=== PATIENT | female | born 1950 | race Caucasian/White ===

== ENCOUNTER 2016-09-18 09:24 | Inpatient (IN) | payer MEDICARE, OTHER ==
[~2016-09-18] VITALS: Ht 162.6 cm; Wt 93.4 kg
[2016-09-18] MEDS ORDERED: clonazePAM 0.5 MG TABLET PO PRN (10:00)
[2016-09-18] MEDS ORDERED: ACETAMINOPHEN 325 MG TABLET PO PRN (10:00)
[2016-09-18] MEDS ORDERED: MAG HYDROX/AL HYDROX/SIMETH 30 ML UDC PO PRN (10:00)
[2016-09-18] MEDS ORDERED: MAGNESIUM HYDROXIDE 30 ML UDC PO PRN (10:00)
[2016-09-18] MEDS ORDERED: TEMAZEPAM 7.5 MG CAPSULE PO PRN (10:00)
--- NOTE | 2016-09-18 10:00 | NUR ---
RN-CO: NOTIFIED DR QUIROGA OF THE ADMISSION, ADMITTING ORDERS GIVEN NOTED.
[2016-09-18] MEDS ORDERED: DIVA500T54 PO (10:44)
[2016-09-18] MEDS ORDERED: DIVA250T PO (10:44)
[2016-09-18] MEDS ORDERED: OLAN20TA3 PO (10:44)
[2016-09-18] MEDS ORDERED: IBUP-1955 PO (10:44)
[2016-09-18] MEDS ORDERED: FLUO40CA49 PO (10:44)
[2016-09-18] MEDS ORDERED: LEVO50TA8 PO (10:44)
[2016-09-18] MEDS ORDERED: BENZ1TAB7 PO (10:44)
[2016-09-18] MEDS ORDERED: OXYB5TAB11 PO (10:44)
[2016-09-18] MEDS ORDERED: ALBU90AE IH (10:49)
[2016-09-18] MEDS ORDERED: TIOT18CA3 IH (10:49)
--- NOTE | 2016-09-18 11:00 | NUR ---
BABBITT SPINNER NOTE: ADMITTED 66Y/O FEMALE FROM ER ON 5150 HOLD FOR DTO ,DTS ,PER 5150 HOLD PATIENT ALERT ,VERBALLY RESPONSIVE ,ORIENTED X2 PATIENT STATED "I HEAR VOICES TELLING ME DIFFERENT THINGS .PATIENT HAS HX OF SCHITOZOPHERNIS AND BIPOLAR DISORDER.PATIENT SEEN BY .AND RANDI SALGUERO .PATIENT RIGHTS HAND BOOK GIVEN AND EXPLAINED TO PATIENT ABLE TO VERBALIZE UNDERSTANDING .BELONGING CHECKED IN BY STAFF .START PATIENT ON Q15 MINUTES SAFTEY CHECK.
[2016-09-18] MEDS ORDERED: Z GUARD REMEDY 2 OZ OINT TP PRN (13:30)
[2016-09-18] MEDS: Z GUARD REMEDY 2 OZ OINT TP SCH (13:30)
--- NOTE | 2016-09-18 13:30 | NUR ---
WOUND CARE CONSULT: PT PRESENTS AMBULATORY WITH RASH TO AREA UNDER BOTH BREASTS. SOME REDNESS NOTED TO GLUTEAL CREASE. RECOMMENDATIONS MADE AND DISCUSSED WITH NURSING STAFF. WILL SEE PRN. BRAMBILA IN AGREEMENT WITH PLAN OF CARE. Addendum: 09/18/16 at 1331 by RODNEY OHARA WNDNU Amended: Links added.
[2016-09-18] MEDS ORDERED: FLUOXETINE HCL 20 MG CAPSULE PO SCH (14:33)
[2016-09-18 15:49] VITALS: BP 160/88
[2016-09-18] MEDS: CLOTRIMAZOLE/BETAMETASONE DIPROPIONATE 15 GM TUBE TP SCH (17:00)
[2016-09-18] MEDS: BENZTROPINE MESYLATE (1 MG) 1 MG TABLET PO SCH (17:00)
[2016-09-18 20:38] VITALS: BP 130/63
[2016-09-18] MEDS: DIVALPROEX SODIUM 250 MG TABLET.DR PO SCH (21:06)
[2016-09-18] MEDS: OLANZAPINE 10 MG TABLET PO SCH (21:07)
[2016-09-18] MEDS: DIVALPROEX SODIUM 500 MG TABLET.DR PO SCH (21:07)
[2016-09-18] MEDS ORDERED: OLANZAPINE 10 MG TABLET PO SCH (22:00)
[2016-09-19 07:39] LABS: ALBUMIN 2.9 g/dL (3.4-5.0); BILIRUBIN,TOTAL 0.3 mg/dL (0.2-1.0); CREATININE 0.7 mg/dL (0.6-1.3); POTASSIUM 4.5 mmol/L (3.5-5.1); TOTAL PROTEIN, SERUM 6.7 g/dL (6.4-8.2)
[2016-09-19 08:00] VITALS: BP 140/72
[2016-09-19] MEDS ORDERED: FLUOXETINE HCL 20 MG CAPSULE PO SCH (09:00)
[2016-09-19] MEDS: BENZTROPINE MESYLATE (1 MG) 1 MG TABLET PO SCH ×2 (09:16→18:34)
[2016-09-19] MEDS: FLUOXETINE HCL 20 MG CAPSULE PO SCH (09:17)
[2016-09-19] MEDS: CLOTRIMAZOLE/BETAMETASONE DIPROPIONATE 15 GM TUBE TP SCH ×2 (09:17→18:35)
[2016-09-19] MEDS: Z GUARD REMEDY 2 OZ OINT TP SCH (09:17)
--- NOTE | 2016-09-19 12:13 | NUR ---
Initial DC Plan: Patient resides at [facility] Board and care located at [address] [place] [id number]; [phone]. Assigned SW spoke to patient's conservator (magalyswill Torres- [phone]) who stated that he would like for patient to return to the board and care once discharged from the hospital. SW spoke to Shasha ([phone]) from the [facility] who confirmed that patient is able to return once discharged from hospital. SW will follow up regarding transportation back to [facility]. SW will help form a safe and proper discharge.
[2016-09-19] MEDS ORDERED: ALBUTEROL SULFATE 8 GM HFA.AER.AD IH PRN (15:30)
[2016-09-19] MEDS ORDERED: OXYBUTYNIN CHLORIDE 5 MG TABLET PO PRN (15:30)
[2016-09-19 16:00] VITALS: BP 147/87
[2016-09-19] MEDS ORDERED: ALBUTEROL FS 2.5 MG/3 ML VIAL.NEB NEB PRN (16:00)
[2016-09-19] MEDS ORDERED: IPRATROPIUM NEB FS 0.5 MG/2.5 ML AMPUL.NEB NEB PRN (16:00)
[2016-09-19 20:00] VITALS: BP 127/69
[2016-09-19] MEDS: DIVALPROEX SODIUM 500 MG TABLET.DR PO SCH (20:10)
[2016-09-19] MEDS: DIVALPROEX SODIUM 250 MG TABLET.DR PO SCH (20:10)
[2016-09-19] MEDS: OLANZAPINE 10 MG TABLET PO SCH (20:10)
--- NOTE | 2016-09-19 20:11 | NUR ---
RN NOTES Pt REQUESTED NIGHT MEDS EARLY.
--- NOTE | 2016-09-20 06:34 | NUR ---
RN CLOSING NOTES NO SIGNIFICANT CHANGES DURING THE SHIFT. ROUNDED Q15MIN TO CHECK Pt SAFETY. ALL SAFETY PRECAUTIONS IN PLACE. NO S/S OF ACUTE DISTRESS OR SOB NOTED DURING THE NIGHT. ALL NEEDS MET AND ATTENDED TO. WILL ENDORSE TO DAYSHIFT RN FOR Pt's CHARITY.
[2016-09-20 08:09] VITALS: BP 152/80
[2016-09-20] MEDS ORDERED: TIOTROPIUM BROMIDE 6 CAP/BOX CAP.W.DEV IH SCH (09:00)
[2016-09-20] MEDS: BENZTROPINE MESYLATE (1 MG) 1 MG TABLET PO SCH ×2 (09:20→17:01)
[2016-09-20] MEDS: LEVOTHYROXINE SODIUM 50 MCG TABLET PO SCH (09:21)
[2016-09-20] MEDS: NICOTINE PATCH (14MG) 14 MG PATCH.TD24 TD SCH (09:21)
[2016-09-20] MEDS: FLUOXETINE HCL 20 MG CAPSULE PO SCH (09:21)
[2016-09-20] MEDS: CLOTRIMAZOLE/BETAMETASONE DIPROPIONATE 15 GM TUBE TP SCH ×2 (09:25→17:02)
[2016-09-20] MEDS: Z GUARD REMEDY 2 OZ OINT TP SCH (09:25)
[2016-09-20 16:02] VITALS: BP 126/67
--- NOTE | 2016-09-20 19:30 | NUR ---
GPS RN NOTE, RECEIVED PATIENT AWAKE AND IN BED, NO S/S OR COMPLAINTS OF PAIN AT THIS TIME. PATIENT IS DISPLAYING NO S/S OF APPARENT DISTRESS AT THIS TIME. PATIENT BREATHING IS UNLABORED WITH EQUAL RISE AND FALL OF THE CHEST. PATIENT IS ALERT AND ORIENTED X 3 ON ROOM AIR WITH A SPO2 96%. PATIENT COMPLIANT WITH MEDICATIONS, ANXIOUS, CALM, DISORGANIZED, INDEPENDENT, AND NEEDS REORIENTATION. PATIENT DENIES SUICIDE AND HOMICIDAL IDEATIONS AT THIS TIME. PATIENT ASSISTED WITH TURNING AND REPOSITIONING Q2HR AND PRN FOR COMFORT AND CIRCULATION. PATIENT HAS NO NEEDS AT THIS TIME. PATIENT REFUSED SKIN ASSESSMENT TODAY. PATIENT EDUCATED ON THE USE OF THE CALL CHANEY. PATIENT BED SIDE RAILS UP X2 FOR SAFETY, BED IS LOCKED AND LOW WILL CONTINUE TO MONITOR AND MAINTAIN SAFETY.
[2016-09-20 20:00] VITALS: BP 123/69
[2016-09-20] MEDS: OLANZAPINE 10 MG TABLET PO SCH (21:56)
[2016-09-20] MEDS: DIVALPROEX SODIUM 500 MG TABLET.DR PO SCH (21:56)
[2016-09-20] MEDS: DIVALPROEX SODIUM 250 MG TABLET.DR PO SCH (21:56)
[2016-09-20 23:38] LABS: APPEARANCE,URINE SL CLOUDY (CLEAR); BILIRUBIN,URINE NEGATIVE (NEGATIVE); BLOOD, URINE NEGATIVE Ery/uL (NEGATIVE); COLOR,URINE YELLOW (YELLOW); KETONES,URINE NEGATIVE (NEGATIVE); LEUKOCYTE ESTERASE ,URINE NEGATIVE (NEGATIVE); NITRITE, URINE NEGATIVE (NEGATIVE); PROTEIN,URINE NEGATIVE (NEGATIVE); UGLUCOSE NEGATIVE (NEGATIVE); UROBILINOGEN,URINE 0.2 EU/dL (0.2)
--- NOTE | 2016-09-21 08:00 | NUR ---
RN NOTES' RECEIVED PT AWAKE AND ALERT, PT IS AMBULATORY WITH WALKER. NO SUICIDAL AND HOMICIDAL IDEATIONS NOTED. SAFETY ENSURED . ALL NEEDS ATTENDED
[2016-09-21 08:28] VITALS: BP 159/85
[2016-09-21] MEDS: FLUOXETINE HCL 20 MG CAPSULE PO SCH (08:34)
[2016-09-21] MEDS: LEVOTHYROXINE SODIUM 50 MCG TABLET PO SCH (08:34)
[2016-09-21] MEDS: BENZTROPINE MESYLATE (1 MG) 1 MG TABLET PO SCH ×2 (08:34→16:33)
[2016-09-21] MEDS: NICOTINE PATCH (14MG) 14 MG PATCH.TD24 TD SCH (08:34)
[2016-09-21] MEDS: Z GUARD REMEDY 2 OZ OINT TP SCH (08:36)
[2016-09-21] MEDS: CLOTRIMAZOLE/BETAMETASONE DIPROPIONATE 15 GM TUBE TP SCH ×2 (08:36→16:34)
[2016-09-21 16:16] VITALS: BP 154/76
--- NOTE | 2016-09-21 18:53 | NUR ---
RN CLOSING NOTES NO SIGNIFICANT BEHAVIORAL CHANGES DURING THIS SHIFT; PT COMPLIANT WITH MEDS. WILL ENDORSE TO NEXT SHIFT FOR CONTINUITY OF CARE IN STABLE CONDITION
[2016-09-21 20:00] VITALS: BP 148/69
--- NOTE | 2016-09-21 20:00 | NUR ---
RECEIVED PATIENT IN DAY ROOM, NOT IN APPARENT DISTRESS, ANSWERS QUESTIONS APPROPRIATELY, CALM, NO SUICIDAL IDEATION AT THIS TIME. WALKS WITH WALKER, MADE SAFE, WILL CONTINUE TO MONITOR.
[2016-09-21 22:00] VITALS: BP 148/69
[2016-09-21] MEDS: OLANZAPINE 10 MG TABLET PO SCH (23:11)
[2016-09-21] MEDS: DIVALPROEX SODIUM 250 MG TABLET.DR PO SCH (23:12)
[2016-09-21] MEDS: DIVALPROEX SODIUM 500 MG TABLET.DR PO SCH (23:12)
--- NOTE | 2016-09-22 06:22 | NUR ---
PATIENT IN UP IN CHAIR, NO SOB, NO DISTRESS, NO CHANGE IN BEHAVIOR, CALM AND COMPLIANT WITH MEDICATIONS DURING SHIFT. PROVIDED SNACKS, STAYED MOSTLY IN ROOM AND NO INTERACTION WITH ROOM MATE. NEEDS ATTENDED.
[2016-09-22] MEDS: LEVOTHYROXINE SODIUM 50 MCG TABLET PO SCH ×2 (06:30→08:45)
[2016-09-22 08:00] VITALS: BP 141/86
[2016-09-22] MEDS: FLUOXETINE HCL 20 MG CAPSULE PO SCH (08:44)
[2016-09-22] MEDS: BENZTROPINE MESYLATE (1 MG) 1 MG TABLET PO SCH ×2 (08:44→17:11)
[2016-09-22] MEDS: NICOTINE PATCH (14MG) 14 MG PATCH.TD24 TD SCH (08:45)
[2016-09-22] MEDS: CLOTRIMAZOLE/BETAMETASONE DIPROPIONATE 15 GM TUBE TP SCH ×2 (08:51→17:12)
[2016-09-22] MEDS: Z GUARD REMEDY 2 OZ OINT TP SCH (08:52)
[2016-09-22 16:00] VITALS: BP 137/68
[2016-09-22 20:15] VITALS: BP 132/73
[2016-09-22] MEDS: DIVALPROEX SODIUM 500 MG TABLET.DR PO SCH (21:15)
[2016-09-22] MEDS: DIVALPROEX SODIUM 250 MG TABLET.DR PO SCH (21:15)
[2016-09-22] MEDS: OLANZAPINE 10 MG TABLET PO SCH (21:16)
[2016-09-23 08:00] VITALS: BP 142/72
[2016-09-23] MEDS: BENZTROPINE MESYLATE (1 MG) 1 MG TABLET PO SCH ×2 (08:42→17:18)
[2016-09-23] MEDS: NICOTINE PATCH (14MG) 14 MG PATCH.TD24 TD SCH (08:45)
[2016-09-23] MEDS: FLUOXETINE HCL 20 MG CAPSULE PO SCH (08:45)
[2016-09-23] MEDS: LEVOTHYROXINE SODIUM 50 MCG TABLET PO SCH (08:45)
[2016-09-23] MEDS: CLOTRIMAZOLE/BETAMETASONE DIPROPIONATE 15 GM TUBE TP SCH ×2 (08:48→17:51)
[2016-09-23] MEDS: Z GUARD REMEDY 2 OZ OINT TP SCH (08:49)
[2016-09-23 16:00] VITALS: BP 108/61
[2016-09-23 20:00] VITALS: BP 123/56
[2016-09-23] MEDS: DIVALPROEX SODIUM 250 MG TABLET.DR PO SCH (21:20)
[2016-09-23] MEDS: DIVALPROEX SODIUM 500 MG TABLET.DR PO SCH (21:20)
[2016-09-23] MEDS: OLANZAPINE 10 MG TABLET PO SCH (21:21)
--- NOTE | 2016-09-24 07:30 | NUR ---
RECEIVED PT. ALERT AND ORIENTED X2-3.VS STABLE,MED COMPLIANT.
[2016-09-24 08:00] VITALS: BP 140/77
[2016-09-24] MEDS: FLUOXETINE HCL 20 MG CAPSULE PO SCH (08:45)
[2016-09-24] MEDS: NICOTINE PATCH (14MG) 14 MG PATCH.TD24 TD SCH (08:45)
[2016-09-24] MEDS: BENZTROPINE MESYLATE (1 MG) 1 MG TABLET PO SCH (08:45)
[2016-09-24] MEDS: LEVOTHYROXINE SODIUM 50 MCG TABLET PO SCH (08:45)
[2016-09-24] MEDS: CLOTRIMAZOLE/BETAMETASONE DIPROPIONATE 15 GM TUBE TP SCH (08:46)
[2016-09-24] MEDS: Z GUARD REMEDY 2 OZ OINT TP SCH (08:53)
--- NOTE | 2016-09-24 11:00 | NUR ---
DISCHARGE PHOTOS DONE.
--- NOTE | 2016-09-24 11:45 | NUR ---
GIVEN ALL BELONGINGS,ALL PAPERS SIGNED,CAREGIVER HERE AND AWARE OF RXS.PT. DENIES SUICIDAL AND HOMICIDAL IDEATION.TAKEN TO LOBBY ACCOMPANIED BY BREAD MOLDER AND CAREGIVER IN [facility]I CHAIR.
--- NOTE | 2016-09-24 14:00 | NUR ---
Discharge Note: Patient returned to [facility] and care located at [address] [place] [id number]; [phone]. Patient's conservator Christianne Torres was notified and picked up the patient at 11:45 am. RYLEE informed Shasha ([phone]) from the [facility] that patient was returning to the facility. Patient was provided RX. RYLEE provided patient with the phone number to the [facility] . Facilitated info to IDT team who are in agreement with discharge arrangement. The multidisciplinary exitcare form was done, printed, signed, and given to the patient.
== END 2016-09-24 11:45 | disposition home or self-care (01) | DRG 885 ==
LOC: GPS 09:24
PROVIDERS: ADMIT Psychiatry & Neurology Psychiatry; ATTEND Nurse Practitioner Acute Care
DX: F25.0 Schizoaffective disorder, bipolar type (principal); E44.0 Moderate protein-calorie malnutrition; E87.1 Hypo-osmolality and hyponatremia; F29 Unspecified psychosis not due to a substance or known physiological condition; E66.01 Morbid (severe) obesity due to excess calories; E03.9 Hypothyroidism, unspecified; F17.210 Nicotine dependence, cigarettes, uncomplicated; Z79.899 Other long term (current) drug therapy; Z68.35 Body mass index [BMI] 35.0-35.9, adult; Z91.19 Patient's noncompliance with other medical treatment and regimen; N32.81 Overactive bladder; J45.909 Unspecified asthma, uncomplicated; E88.09 Other disorders of plasma-protein metabolism, not elsewhere classified
CPT/HCPCS: 36415; 80053-TC; 80061-TC; 80164-TC; 81000-TC